=== PATIENT | female | born 1940 | race Caucasian/White ===

== ENCOUNTER → 2016-07-11 | Outpatient (CLI) | payer MEDICARE ==
[~2016-07-11] MED LIST: ACAR100T PO; ACAR50TA4 PO; AMLO10TA62 PO; ASPI1CPM PO; CALC-586 PO; FURO40TA70 PO; GEMF600T26 PO; GLIM4TAB32 PO; LEVO125T48 PO; LISI40TA95 PO; OLAN10TA16 PO; POTA10CA29 PO; SIMV20TA89 PO; [UNRECOGNIZED DRUG - CODE] PO
== END ==
LOC: WC.BC 14:36
DX: Z12.31 Encounter for screening mammogram for malignant neoplasm of breast (principal)
CPT/HCPCS: 77063; G0202